=== PATIENT | male | born 1980 | race Two or more races ===

== ENCOUNTER 2022-12-12 07:27 | Emergency (ER) | payer OTHER ==
[~2022-12-12] VITALS: Ht 177.8 cm; Wt 83.9 kg
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
--- NOTE | 2022-12-12 08:00 | NUR ---
TAKEN TO CT
--- NOTE | 2022-12-12 08:30 | NUR ---
NEED ATTENDED, PATIENT SEEN GOING TO THE [facility] WITH STEADY GAIT . NO SIGNS AND SYMPTOMS OF DISTRESS
[2022-12-12] MEDS ORDERED: CYCL10TA9 PO (10:40)
[2022-12-12] MEDS ORDERED: NAPR-1192 PO (10:40)
--- NOTE | 2022-12-12 11:11 | NUR ---
Patient discharged to home in stable condition. Written and verbal after care instructions given. Patient verbalizes understanding of instruction.
[2022-12-12 11:13] VITALS: BP 131/81
== END 2022-12-12 11:13 | disposition home or self-care (01) ==
LOC: ER 07:59
DX: M54.50 Low back pain, unspecified (principal); Z79.899 Other long term (current) drug therapy; W18.30XA Fall on same level, unspecified, initial encounter; Y93.89 Activity, other specified; Y92.89 Other specified places as the place of occurrence of the external cause; Y99.8 Other external cause status
CPT/HCPCS: 72131-TC